=== PATIENT | female | born 1975 ===

== ENCOUNTER 2018-08-12 07:56 | Day surgery (SDC) | payer BC ==
[2018-08-12] MEDS ORDERED: Bupivacaine 0.25% 20 ML INJ IJ ONE ×2 (12:07→12:59)
[2018-08-12] MEDS ORDERED: ceFAZolin IV 1 gm in Dextrose 1 GM/50 ML BAG IVPB ONE (12:07)
[2018-08-12] MEDS ORDERED: Propofol 10 mg/ml Inj (20 ML) ONE (12:13)
[2018-08-12] MEDS ORDERED: Midazolam 2 MG/2 ML VIAL ONE (12:13)
[2018-08-12] MEDS ORDERED: ceFAZolin 1 gm in NS 1 GM/100 ML BAG IVPB ONE (12:29)
--- NOTE | 2018-08-12 14:28 | PCM.SURG1 ---
Surgeon's Initial Post Op Note - Surgeon's Notes Surgeon: Dr. Chen Administrative Office Specialist: Dr. Baird Type of Anesthesia: General Endo Pre-Operative Diagnosis: pelvic pain, large pelvic mass Operative Findings: Dense adhesions between bowel and anterior as well as lateral side wall. Left ovarian cyst Post-Operative Diagnosis: same Operation Performed: Laparoscopic ovarian cyst aspiration, extensive lysis of adhesions Specimen/Specimens Removed: Left ovarian cyst fluid Estimated Blood Loss: EBL {In ML}: 5 Blood Products Given: N/A Drains Used: No Drains Post-Op Condition: Good Date of Surgery/Procedure: 08/14/18 Time of Surgery/Procedure: 01:00
[2018-08-12] MEDS ORDERED: Lactated Ringer's 1,000 ML IV SCH (15:00)
[2018-08-12] MEDS: HYDROmorphone 0.5 mg/0.5 ml ISec IVP PRN ×2 (15:09→15:25)
[2018-08-12 17:41] VITALS: TEMP 97.7; O2SAT 97
[2018-08-12 17:43] VITALS: BP 110/65; PULSE 77; RESP 18
== END 2018-08-12 17:40 | disposition home or self-care (01) ==
LOC: C.SDS 07:56
PROVIDERS: ATTEND Obstetrics & Gynecology
DX: N83.202 Unspecified ovarian cyst, left side (principal); R10.2 Pelvic and perineal pain; N73.6 Female pelvic peritoneal adhesions (postinfective)
CPT/HCPCS: 36415; 49322; 49329; 86850; 86900; 88173; C2615; J0690; J1170; J2250; J2704; J3010